=== PATIENT | female | born 1930 | race Caucasian/White ===

== ENCOUNTER → 2020-07-09 | Outpatient (CLI) | payer MEDICARE ==
[~2020-07-09] MED LIST: ACET-2065 PO; AMLO2.5T2 PO; AMLO5TAB4 PO; APIX5TAB PO; ATEN25TA PO; DOCU100C33 PO; HYDR12.517 PO; LOSA25TA25 PO; LOSA50TA14 PO; METO-93 PO; REGADENOSON 0.4 MG/5 ML SYRINGE ONE
== END | disposition home or self-care (01) ==
LOC: CFH 08:11
PROVIDERS: ATTEND Internal Medicine Cardiovascular Disease
DX: I10 Essential (primary) hypertension (principal); I48.91 Unspecified atrial fibrillation; I63.9 Cerebral infarction, unspecified
CPT/HCPCS: 78452; 93017; A9502; J2785

== ENCOUNTER 2020-10-18 11:28 | Emergency (ER) | payer MEDICARE ==
[~2020-10-18] VITALS: Ht 172.7 cm; Wt 68.9 kg
[~2020-10-18 11:28] MED LIST changes: -REGADENOSON 0.4 MG/5 ML SYRINGE ONE
--- NOTE | 2020-10-18 11:48 | NUR ---
REPORTS ELEVATED BP TODAY AND LAST NOC: OVER 200. 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 DENIES HANNON, NEW VISION CHANGES. REPORTS SINUSITIS SX. CARVIDELOL DOSE RECENTLY DECREASED, NORVASC STOPPED. IS TAKINE LOSARTAN. DAUGHTER IN ROOM.
[2020-10-18 12:20] LABS: BASOPHILS % (AUTO) 1 % (0-1); EOSINOPHILS % (AUTO) 5 % (1-7); LYMPHOCYTES % (AUTO) 27 % (22-44); MEAN CORPUSCULAR HEMOGLOBIN 30.7 pg (27.0-34.8); MEAN CORPUSCULAR HGB CONC 33.7 g/dL (32.4-35.8); MEAN PLATELET VOLUME 8.1 fL (7.4-10.4); MONOCYTES % (AUTO) 12 % (2-9); NEUTROPHILS % (AUTO) 56 % (42-75); PLATELET COUNT 219 x10^3/uL (130-400); RED CELL DISTRIBUTION WIDTH 12.9 % (9.6-15.2)
[2020-10-18 12:26] LABS: ALBUMIN 3.5 g/dL (3.4-5.0); CHLORIDE 105 mmol/L (98-107); CREATININE 0.79 mg/dL (0.55-1.02)
--- NOTE | 2020-10-18 12:30 | NUR ---
RESTING ON GURNEY, SPEAKING W/ DAUGHTER WHO IS IN THE ROOM. PEST CONTROL WORKER HELPER APPLIED.
[2020-10-18 12:33] LABS: ANION GAP 4 mmol/L (5-15)
[2020-10-18] MEDS ORDERED: LOSA50TA14 PO (12:39)
[2020-10-18] MEDS ORDERED: ESTR2TAB PO (12:39)
[2020-10-18] MEDS ORDERED: CARV12.52 PO (12:39)
[2020-10-18] MEDS ORDERED: ATOR20TA86 PO (12:39)
[2020-10-18] MEDS ORDERED: MIRT-34 PO (12:40)
[2020-10-18] MEDS ORDERED: STOOL SOFTNER PO (12:40)
[2020-10-18 12:41] LABS: MD NO
--- NOTE | 2020-10-18 13:33 | NUR ---
ERP AT BS
--- NOTE | 2020-10-18 13:40 | NUR ---
PT STATES DR GUZMAN WILL BE ORDERING A CHEST XR. DC WILL BE DELAYED; OPERATIONS PLANT ATTENDANT NOTIFIED.
[2020-10-18 14:00] VITALS: BP 146/68
== END 2020-10-18 14:35 | disposition home or self-care (01) ==
LOC: ED 13:07
DX: I10 Essential (primary) hypertension (principal); R00.0 Tachycardia, unspecified; R07.9 Chest pain, unspecified; E78.5 Hyperlipidemia, unspecified; I48.91 Unspecified atrial fibrillation; Z86.73 Personal history of transient ischemic attack (TIA), and cerebral infarction without residual deficits
CPT/HCPCS: 36415; 71045; 80048; 82040; 85025; 93005; 99285